=== PATIENT | male | born 1985 | race Caucasian/White ===

== ENCOUNTER 2021-05-01 16:40 | Emergency (ER) | payer OTHER ==
[~2021-05-01] VITALS: Ht 175.3 cm; Wt 81.6 kg
[2021-05-01 16:40] VITALS: BP_SYST 133
[2021-05-01] MEDS ORDERED: LIDOCAINE/EPI 1% 1:100000 20 ML VIAL INJ ONE (17:00)
[2021-05-01] MEDS ORDERED: fentaNYL CITRATE/PF 100 MCG/2 ML AMP IM ONE (17:45)
[2021-05-01] MEDS ORDERED: NAPR-1172 PO (18:24)
[2021-05-01] MEDS ORDERED: HYDR-3917 PO (18:24)
[2021-05-01] MEDS ORDERED: cefTRIAXone 1 GM in LIDOCAINE 1%, 20 ML MDV 2.1 ML IM ONE (18:30)
[2021-05-01 18:46] VITALS: BP_SYST 138
== END 2021-05-01 18:46 | disposition home or self-care (01) ==
LOC: EDBD 16:40 → SED 16:40
DX: L03.114 Cellulitis of left upper limb (principal); L02.512 Cutaneous abscess of left hand; Z79.899 Other long term (current) drug therapy
CPT/HCPCS: 10060; 93005; 96372; 99284; J0696; J2001; J3010

== ENCOUNTER 2023-11-01 03:48 | Emergency (ER) | payer OTHER ==
[~2023-11-01] VITALS: Ht 175.3 cm; Wt 83.9 kg
[~2023-11-01 03:48] MED LIST: HYDR-3917 PO; NAPR-1172 PO
[2023-11-01 04:31] VITALS: BP_SYST 136; PULSE 88; RESP 18; TEMP 98.3; O2SAT 98
[2023-11-01 05:07] LABS: CALCIUM 9.1 mg/dL (8.4-11.0); CREATININE 1.09 mg/dL (0.55-1.30); POTASSIUM 3.7 mmol/L (3.5-5.1)
[2023-11-01 05:12] LABS: BASOPHILS % (AUTO) 0.5 % (0.0-2.0); EOSINOPHILS # (AUTO) 0.2 K/uL (0.0-0.4); EOSINOPHILS % (AUTO) 3.4 % (0.0-4.0); HEMATOCRIT 43.5 % (36-54); HEMOGLOBIN 14.4 g/dL (14.0-18.0); LYMPHOCYTES # (AUTO) 1.2 K/uL (1.0-5.5); LYMPHOCYTES % (AUTO) 17.1 % (20.5-51.5); MEAN CORPUSCULAR HEMOGLOBIN 29 pg (27-31); MEAN CORPUSCULAR HGB CONC 33 % (32-36); MEAN CORPUSCULAR VOLUME 89 fL (79.0-98.0); MONOCYTES # (AUTO) 0.5 K/uL (0.0-1.0); MONOCYTES % (AUTO) 8.1 % (1.7-9.3); NEUTROPHILS # (AUTO) 4.8 K/uL (1.8-7.7); NEUTROPHILS % (AUTO) 70.9 % (40.0-70.0); PLATELET COUNT (AUTO) 223 K/uL (130-430); RED CELL DISTRIBUTION WIDTH 12.5 % (9.0-15.0); WHITE BLOOD COUNT (AUTO) 6.8 K/uL (4.8-10.8)
[2023-11-01] MEDS ORDERED: MYCOLOG30 TP (05:34)
[2023-11-01] MEDS ORDERED: DOXY100C5 PO (05:34)
== END 2023-11-01 05:45 | disposition home or self-care (01) ==
LOC: SED 03:48
DX: N48.1 Balanitis (principal); Z79.899 Other long term (current) drug therapy
CPT/HCPCS: 36415; 80048; 85025; 99283

== ENCOUNTER 2023-11-28 20:18 | Emergency (ER) | payer OTHER ==
[~2023-11-28] VITALS: Ht 175.3 cm; Wt 86.2 kg
[~2023-11-28 20:18] MED LIST changes: +DOXY100C5 PO; +MYCOLOG30 TP
[2023-11-28 20:25] VITALS: BP_SYST 135; PULSE 97; RESP 20; TEMP 97.6; O2SAT 99
[2023-11-28 22:51] VITALS: BP_SYST 124; PULSE 78; RESP 20; TEMP 97; O2SAT 98
== END 2023-11-28 22:50 | disposition home or self-care (01) ==
LOC: SED 20:18
DX: S09.90XA Unspecified injury of head, initial encounter (principal); Z79.899 Other long term (current) drug therapy; W19.XXXA Unspecified fall, initial encounter; Y93.89 Activity, other specified; Y92.89 Other specified places as the place of occurrence of the external cause; Y99.8 Other external cause status
CPT/HCPCS: 70450-TC; 76376; 99284